=== PATIENT | female | born 1940 | race Hispanic/Latino ===

== ENCOUNTER 2017-07-29 14:12 | Inpatient (IN) | payer MEDICARE ==
[2017-07-29] MEDS ORDERED: Vancomycin 1gm in NS 250ml 1 GM/250 ML BAG IVPB STA (14:36)
[2017-07-29 14:59] LABS: BASO # 0.01 K/mm3 (0.0-2.0); BASO % 0.1 % (0.0-3.0); EOS # 0.2 (0.0-0.7); EOS % 1.9 % (1.5-5.0); GRAN # 5.09 (1.4-6.5); GRAN % 64.5 % (50.0-68.0); HEMATOCRIT 33.7 % (36.0-48.0); LYMPH # 1.9 (1.2-3.4); LYMPH % 23.4 % (22.0-35.0); MEAN CELL VOLUME 91.1 fl (80.0-105.0); MEAN CORPUSCULAR HEMOGLOBIN 28.4 pg (25.0-35.0); MEAN CORPUSCULAR HGB CONC 31.2 g/dl (31.0-37.0); MEAN PLATELET VOLUME 10.9 fl (7.0-11.0); MONO # 0.8 (0.1-0.6); MONO % 10.1 % (1.0-6.0); RED CELL DISTRIBUTION WIDTH 13.3 % (11.5-14.5); WHITE BLOOD COUNT 7.9 10^3/ul (4.5-11.0)
[2017-07-29 15:03] LABS: ALB/GLOB RATIO 1.1 (1.1-1.8); ALKALINE PHOSPHATASE 106 U/L (38-126); ALT/SGPT 20 U/L (7-56); AST/SGOT 23 U/L (14-36); BILIRUBIN,TOTAL 0.4 mg/dL (0.2-1.3); BLOOD UREA NITROGEN 29 mg/dL (7-21); CALCIUM 8.8 mg/dL (8.4-10.5); CARBON DIOXIDE 29 mmol/L (21-33); CHLORIDE 106 mmol/L (98-107); GFR AFRICAN-AMERICAN > 60; GLUCOSE,RANDOM 87 mg/dL (70-110); POTASSIUM 3.8 mmol/L (3.6-5.0); SODIUM 146 mmol/L (132-148); TOTAL PROTEIN 7.8 g/dL (5.8-8.3)
--- NOTE | 2017-07-29 15:30 | ED PDOC ---
Arrival/HPI - General Historian: Patient, Family - General Chief Complaint: Lower Extremity Problem/Injury Time Seen by Provider: 07/29/17 14:23 - History of Present Illness Narrative History of Present Illness (Text): 07/29/17 15:24 76yo female with Past medical history of hypertension, lymphedema, hyperlipdemia , previous cellulites who was referred to emergency department by Dr. Harley for admission. Patient reports increasing pain of her right LLE for the past few days. Saw Dr. Harley today and was referred to emergency department for admission. +Increasing discharge from right LE wound. She otherwise denies fever , chills, chest pain, SOB, abdominal pain, dizziness, nausea, vomiting, urinary symptoms, any other complaint. (Brandon Fallon A) Past Medical History - Provider Review Nursing Documentation Reviewed: Yes - Infectious Disease Hx of Infectious Diseases: None - Reproductive Menopause: Yes - Cardiac Hx Hypertension: Yes - Pulmonary Hx Respiratory Disorders: No - Neurological Hx Neurological Disorder: No - HEENT Hx HEENT Disorder: No - Renal Hx Renal Disorder: No - Endocrine/Metabolic Hx Endocrine Disorders: No - Hematological/Oncological Hx Cancer: Yes (colon in remission) Hx Chemotherapy: Yes - Integumentary Hx Dermatological Disorder: No Other/Comment: cellilitis/lymphadema ble redness +3 edema hard skin , multiple discolorations both arms, nonstageable posterior rle chronic ulcer 1cm x 0.5cm x 0.1cm - Musculoskeletal/Rheumatological Hx Falls: No - Gastrointestinal Hx Gastrointestinal Disorders: Yes (obese) Other/Comment: colon ca - Genitourinary/Gynecological Hx Genitourinary Disorders: No Hx Incontinence: Yes - Psychiatric Hx Psychophysiologic Disorder: No Hx Depression: No Hx Emotional Abuse: No Hx Physical Abuse: No Hx Substance Use: No - Surgical History Hx Cardiac Catheterization: Yes (02/15/16) Hx Cholecystectomy: Yes - Anesthesia Hx Anesthesia: No - Suicidal Assessment Feels Threatened In Home Enviroment: No Family/Social History - Physician Review Nursing Documentation Reviewed: Yes Family/Social History: Unknown Family HX Smoking Status: Never Smoked Hx Alcohol Use: No Hx Substance Use: No Hx Substance Use Treatment: No Allergies/Home Meds Allergies/Adverse Reactions: Allergies Penicillins Allergy (Verified 02/10/16 17:58) RASH Home Medications: Home Meds Medication Instructions Recorded Confirmed Calcium Carbonate [Caltrate] 1 tab PO DAILY 08/22/13 03/12/16 Metoprolol Tartrate 25 mg PO BID 08/22/13 03/12/16 Simvastatin 20 mg PO DAILY 02/10/16 03/12/16 Amlodipine Besylate [Norvasc] 2.5 mg PO DAILY 03/12/16 03/12/16 Review of Systems - Physician Review All systems were reviewed & negative as marked: Yes - Review of Systems Constitutional: Normal Eyes: Normal ENT: Normal Respiratory: Normal Cardiovascular: Normal Gastrointestinal: Normal Genitourinary Female: Normal Musculoskeletal: Normal Skin: Cellulitis (Right LE) Neurological: Normal Endocrine: Normal Hemo/Lymphatic: Normal Psychiatric: Normal Physical Exam Vital Signs Reviewed: Yes Temperature: Afebrile Blood Pressure: Normal Pulse: Regular Respiratory Rate: Normal Appearance: Positive for: Well-Appearing, Non-Toxic, Comfortable, Other ( Morbidly obese) Pain Distress: None Mental Status: Positive for: Alert and Oriented X 3 - Systems Exam Head: Present: Atraumatic, Normocephalic Pupils: Present: PERRL Extroacular Muscles: Present: EOMI Conjunctiva: Present: Normal Mouth: Present: Moist Mucous Membranes Neck: Present: Normal Range of Motion Respiratory/Chest: Present: Clear to Auscultation, Good Air Exchange. No: Respiratory Distress, Accessory Muscle Use Cardiovascular: Present: Regular Rate and Rhythm, Normal S1, S2. No: Murmurs Abdomen: Present: Normal Bowel Sounds, Rebound. No: Tenderness, Distention, Peritoneal Signs Back: Present: Normal Inspection Upper Extremity: Present: Normal Inspection. No: Cyanosis, Edema Lower Extremity: Present: Edema (5+), CALF TENDERNESS (Right LE), Normal ROM, Tenderness (Right thigh), Swelling, Erythema (Right LE). No: Temperature Abnormalties Neurological: Present: GCS=15, CN II-XII Intact, Speech Normal Skin: Present: Warm, Dry, Normal Color. No: Rashes Psychiatric: Present: Alert, Oriented x 3, Normal Insight, Normal Concentration Vital Signs Temp Pulse Resp BP Pulse Ox 07/29/17 15:48 98.0 F 71 18 125/71 96 07/29/17 14:24 97.8 F 76 18 129/72 98 Medical Decision Making ED Course and Treatment: 07/29/17 15:32 76yo female in emergency department for cellulitis PT with previous history of Cellulitis. She was afebrile and hemodynamically stable in emergency department. Will follow up labs, CXR/Femur xray and LE doppler. She is allergic to PCN, will start with Vancomycin. 07/29/17 16:06 No leukocytosis noted. Pending Urinalysis. Preliminary report from the [facility] was negative for DVT b/l CXR : NAD Femur xray - No subcaneous air. Case was DW Dr. Rollins. pt admitted under his service. ID and Pathology Specialist consult. (Brandon Fallon) - Lab Interpretations Lab Results: 07/29/17 14:40 07/29/17 14:40 Lab Results 07/29/17 14:40: Sodium 146, Potassium 3.8, Chloride 106, Carbon Dioxide 29, Anion Gap 15, BUN 29 H, Creatinine 0.8, Est GFR ( Amer) > 60, Est GFR ( Non-Af Amer) > 60, Random Glucose 87, Calcium 8.8, Total Bilirubin 0.4, AST 23, ALT 20, Alkaline Phosphatase 106, Total Protein 7.8, Albumin 4.1, Globulin 3.7, Albumin/Globulin Ratio 1.1 07/29/17 14:40: WBC 7.9, RBC 3.70, Hgb 10.5 L, Hct 33.7 L, MCV 91.1, MCH 28.4, MCHC 31.2, RDW 13.3, Plt Count 167, MPV 10.9, Gran % 64.5, Lymph % (Auto) 23.4, [place] % (Auto) 10.1 H, Eos % (Auto) 1.9, Baso % (Auto) 0.1, Gran # 5.09, Lymph # 1.9, [place] # 0.8 H, Eos # 0.2, Baso # 0.01 - RAD Interpretation Radiology Orders: 07/29/17 14:35 CHEST TWO VIEWS (PA/LAT) [RAD] Stat Femur Right [FEMUR 1 VIEW RT] [RAD] Stat 07/29/17 14:36 DUPLEX LOWER EXTRM VEIN BILAT [US] Stat - Medication Orders Current Medication Orders: Amlodipine Besylate (Norvasc) 2.5 mg PO DAILY [facility] Atorvastatin Calcium (Lipitor) 10 mg PO HS [facility] Metoprolol Tartrate (Lopressor) 25 mg PO BID [facility] Discontinued Medications Vancomycin HCl (Vancomycin 1gm) 1 gm in 250 mls @ 167 mls/hr IVPB STAT STA PRN Reason: Protocol Stop: 07/29/17 16:05 Last Admin: 07/29/17 16:04 Dose: 167 mls/hr eMAR Start Stop Document 07/29/17 16:04 IT (Rec: 07/29/17 16:07 IT [id number]) Intravenous Solution Start Date 07/29/17 Start Time 16:07 End Date 07/29/17 End time 18:10 Total Infusion Time 123 Disposition/Present on Arrival - Present on Arrival Any Indicators Present on Arrival: No History of DVT/PE: No History of Uncontrolled Diabetes: No Urinary Catheter: No History of Decub. Ulcer: No History Surgical Site Infection Following: None - Disposition Have Diagnosis and Disposition been Completed?: Yes Disposition Time: 16:00 - Disposition Diagnosis: Cellulitis, Urinary tract infection Disposition: HOSPITALIZED Patient Problems: Current Active Problems Problem Status Onset Cellulitis Acute Condition: FAIR
--- NOTE | 2017-07-29 16:32 | RAD ---
HISTORY: ADMISSION COMPARISON: 02/10/2016 TECHNIQUE: Chest PA and lateral FINDINGS: LUNGS: Low-normal lung volumes. No interval consolidation. PLEURA: No significant pleural effusion identified. Minimal small pleural effusion and/or minimal right inferolateral pleural thickening not excluded. Probably due to summation effects. Minimal biapical pleural thickening. No pneumothorax apparent. CARDIOVASCULAR: Mild cardiomegaly. The ectatic thoracic aorta is similar. Interval midline sternotomy changes. Probable minimal pulmonary venous congestion perhaps chronic. OSSEOUS STRUCTURES: Bilateral shoulder arthrosis of midline sternotomy. Old healed mid right lateral rib fracture VISUALIZED UPPER ABDOMEN: Normal. OTHER FINDINGS: None. IMPRESSION: Limited exam given large body habitus and summation effects. Nevertheless no consolidation or gross pleural effusions suggested. Similar mild cardiomegaly. Minimal pulmonary venous congestion - possibly chronic. Interval sternotomy changes
--- NOTE | 2017-07-29 16:34 | RAD ---
PROCEDURE: HISTORY: LEG PAIN COMPARISON: None TECHNIQUE: Single frontal views FINDINGS: No gross midshaft femoral fracture appreciated. Osteoarthrosis of the right hip suggested. Visualization of the proximal right femur is limited due to large body habitus IMPRESSION: No gross femoral fracture or lytic lesion. Right hip osteoarthrosis. Detailed right proximal femoral anatomy limited due to large body habitus
[2017-07-29 17:13] LABS: URINE BILIRUBIN NEGATIVE (NEGATIVE); URINE BLOOD NEGATIVE (NEGATIVE); URINE GLUCOSE (UA) NEGATIVE (NEGATIVE); URINE KETONE NEGATIVE (NEGATIVE); URINE LEUKOCYTE ESTERASE MODERATE Leu/uL (NEGATIVE); URINE PROTEIN NEGATIVE mg/dL (<30 mg/dL); URINE UROBILINOGEN 0.2 E.U./dL (<1 E.U./dL)
[2017-07-29 17:17] LABS: URINE APPEARANCE SL CLOUDY (CLEAR); URINE COLOR YELLOW (YELLOW)
[2017-07-29 17:25] LABS: URINE BACTERIA FEW (NEG); URINE RBC NEGATIVE /hpf (0-2); URINE WBC 15 - 20 /hpf (0-6)
--- NOTE | 2017-07-29 18:29 | US ---
HISTORY: Leg pain and swelling. Evaluate for DVT PHYSICIAN(S): Romie Daniels MD. TECHNIQUE: Duplex sonography and color-flow Doppler with graded compression were used to evaluate the deep venous systems of both lower extremities. The exam is very limited by body habitus and edema. The tibial veins are not well seen FINDINGS: The visualized deep venous systems of both lower extremities are sonographically normal and compressible. Normal wave forms and augmentation are seen. There is no sonographic evidence for deep venous thrombosis in the visualized segments of both lower extremities. IMPRESSION: No sonographic evidence for deep venous thrombosis in the visualized segments of both lower extremities. Very limited study.
[2017-07-29 23:03] VITALS: BMI 50.7
[2017-07-29] MEDS ORDERED: Pneumococcal 23-Valent Vaccine IM ONE (23:04)
[2017-07-29] MEDS ORDERED: Influenza Vaccine 60 mcg/0.5 mL SYR (4YR UP) IM ONE (23:04)
[2017-07-30] MEDS: Vancomycin 1gm in NS 250ml 1 GM/250 ML BAG IVPB SCH ×2 (04:24→15:39)
--- NOTE | 2017-07-30 13:00 | CP.PCM.CON ---
<Tato Eddy - Last Filed: 07/30/17 12:57> History of Present Illness - History of Present Illness History of Present Illness: Patient is a 76 year old female with past medical history of hypertension, lymphedema, hyperlipdemia, previous cellulites seen at bedside for superficial ulcerations of right foot, one anteriolateral, one posterolateral and cellulitic changes. Patient was admitted from Dr. Harley's clinic yesterday. She states that she is feeling better today but still has lots of pain at the ulceration sites. Patient denies any further pedal complaints at this time. Patient denies N/V/F/C/CP/SOB Review of Systems - Review of Systems Review of Systems: ROS unremarkable outside of HPI Past Patient History - Infectious Disease Hx of Infectious Diseases: None - Past Social History Smoking Status: Never Smoked - CARDIAC Hx Hypercholesterolemia: Yes Hx Hypertension: Yes Hx Peripheral Edema: Yes (lynphadema ble +4 pitting edema) Other/Comment: mitral valve replacement at [facility] - PULMONARY Hx Respiratory Disorders: No - NEUROLOGICAL Hx Neurological Disorder: No - HEENT Hx HEENT Problems: No - RENAL Hx Chronic Kidney Disease: No - ENDOCRINE/METABOLIC Hx Endocrine Disorders: No - HEMATOLOGICAL/ONCOLOGICAL Hx Cancer: Yes (colon in remission "yrs ago" as per pt) Hx Chemotherapy: Yes - INTEGUMENTARY Hx Dermatological Problems: No Other/Comment: cellulitis/lymphadema ble redness +3 edema hard skin , multiple discolorations both arms, nonstageable posterior rle chronic ulcer 1cm x 0.5cm x 0.1cm, foul smelling drainage from rle wound - MUSCULOSKELETAL/RHEUMATOLOGICAL Hx Back Pain: Yes Hx Falls: No Hx Unsteady Gait: Yes (cane) - GASTROINTESTINAL Hx Gastrointestinal Disorders: Yes (obese) Other/Comment: colon ca - GENITOURINARY/GYNECOLOGICAL Hx Genitourinary Disorders: No Hx Incontinence: Yes - PSYCHIATRIC Hx Psychophysiologic Disorder: No Hx Depression: No Hx Emotional Abuse: No Hx Physical Abuse: No - SURGICAL HISTORY Hx Surgeries: Yes (picc) Hx Cardiac Catheterization: Yes (02/15/16) Hx Cholecystectomy: Yes - ANESTHESIA Hx Anesthesia: No Meds Allergies/Adverse Reactions: Allergies Allergy/AdvReac Type Severity Reaction Status Date / Time Penicillins Allergy RASH Verified 02/10/16 17:58 - Medications Medications: Current Medications Amlodipine Besylate (Norvasc) 2.5 mg PO DAILY [facility] Last Admin: 07/30/17 09:40 Dose: 2.5 mg Atorvastatin Calcium (Lipitor) 10 mg PO HS [facility] Last Admin: 07/29/17 21:43 Dose: 10 mg Furosemide (Lasix) 20 mg PO DAILY [facility] Last Admin: 07/30/17 11:57 Dose: 20 mg Vancomycin HCl (Vancomycin 1gm) 1 gm in 250 mls @ 167 mls/hr IVPB Q12H [facility] PRN Reason: Protocol Last Admin: 07/30/17 04:24 Dose: 167 mls/hr Aztreonam (Azactam 1 Gm) 100 mls @ 100 mls/hr IVPB Q8 [facility] PRN Reason: Protocol Stop: 08/06/17 06:01 Metoprolol Tartrate (Lopressor) 25 mg PO BID [facility] Last Admin: 07/30/17 09:40 Dose: 25 mg Physical Exam - Constitutional Appears: Well, Non-toxic, No Acute Distress - Extremities Exam Additional comments: LE focused exam: Vasc: DP/PT pulses mildly palpable 1/4 b/l. Skin temperature warm to warm from proximal to distal b/l, increased on right side. CFT < 3 seconds to all digits b /l. Edematous changes noted to right leg Neuro: Epicritic and protective sensation grossly intact b/l Derm: Superficial ulcerations noted to anterolateral leg and posterolateral leg. Cellulitic changes noted to right LE. No malodor, no drainage, no purulence , no underlying fluctuance noted to either ulceration site. MSK: POP noted to ulceration sites of right leg - Neurological Exam Neurological exam: Alert, Oriented x3 - Psychiatric Exam Psychiatric exam: Normal Affect, Normal Mood Results - Vital Signs Recent Vital Signs: Last Vital Signs Temp 98.1 F 07/30/17 08:00 Pulse 68 07/30/17 08:00 Resp 20 07/30/17 08:00 BP 135/62 07/30/17 11:57 Pulse Ox 97 07/30/17 08:00 - Labs Result Diagrams: 07/29/17 14:40 07/29/17 14:40 Labs: Laboratory Results - last 24 hr 07/29/17 07/30/17 07/30/17 17:00 06:58 06:58 ESR 106 H C-React Prot High Sens > 15.00 H Urine Color Yellow Urine Appearance Sl cloudy Urine pH 7.0 Ur Specific [place] 1.010 Urine Protein Negative Urine Glucose (UA) Negative Urine Ketones Negative Urine Blood Negative Urine Nitrate Negative Urine Bilirubin Negative Urine Urobilinogen 0.2 Ur Leukocyte Esterase Moderate H Urine RBC Negative Urine WBC 15 - 20 Ur Epithelial Cells 4 - 5 Urine Bacteria Few Assessment & Plan - Assessment and Plan (Free Text) Assessment: 76 year old female seen at bedside for ulcerations and cellulitic changes of right leg Plan: Patient seen and evaluated at bedside with attending Dr. Harley Charts, labs and vitals evaluated Wound cx taken, results pending Wounds dressed with maxorb, gauze, ABD, kirlix, RUBÉN wrapping to leg Continue IV abx per ID ESR 106 Extremity ultrasound 07/29: No DVT Tib/Fib xray ordered to rule out OM and underlying abscess, MRI will be ordered if necessary Continue PT/OT Podiatry will continue to follow while patient is in house - Date & Time Date: 07/30/17 Time: 13:09 <Giancarlo Harley - Last Filed: 07/31/17 10:40> Meds - Medications Medications: Current Medications Amlodipine Besylate (Norvasc) 2.5 mg PO DAILY [facility] Last Admin: 07/31/17 09:47 Dose: 2.5 mg Atorvastatin Calcium (Lipitor) 10 mg PO HS [facility] Last Admin: 07/30/17 21:58 Dose: 10 mg Furosemide (Lasix) 40 mg PO BID [facility] Last Admin: 07/31/17 09:47 Dose: 40 mg Vancomycin HCl (Vancomycin 1gm) 1 gm in 250 mls @ 167 mls/hr IVPB Q12H [facility] PRN Reason: Protocol Last Admin: 07/31/17 04:18 Dose: 167 mls/hr Aztreonam (Azactam 1 Gm) 100 mls @ 100 mls/hr IVPB Q8 MYLES PRN Reason: Protocol Stop: 08/06/17 06:01 Last Admin: 07/31/17 05:59 Dose: 100 mls/hr Metoprolol Tartrate (Lopressor) 25 mg PO BID [facility] Last Admin: 07/31/17 09:38 Dose: 25 mg Oxycodone/Acetaminophen (Percocet 5/325 Mg Tab) 1 tab PO Q4H PRN PRN Reason: Pain, severe (8-10) Stop: 08/02/17 15:28 Last Admin: 07/30/17 15:39 Dose: 1 tab Results - Vital Signs Recent Vital Signs: Last Vital Signs Temp 97.4 F L 07/31/17 08:10 Pulse 73 07/31/17 09:38 Resp 18 07/31/17 08:10 BP 114/63 07/31/17 09:47 Pulse Ox 95 07/31/17 08:10 - Labs Result Diagrams: 07/29/17 14:40 07/31/17 06:52 Labs: Laboratory Results - last 24 hr 07/30/17 07/31/17 06:58 06:52 Sodium 144 Potassium 4.1 Chloride 109 H Carbon Dioxide 31 Anion Gap 8 L BUN 19 Creatinine 0.9 Est GFR ( Amer) > 60 Est GFR (Non-Af Amer) > 60 Random Glucose 86 Calcium 8.5 C-React Prot High Sens > 15.00 H Attending/Attestation - Attestation I have personally seen and examined this patient.: Yes I have fully participated in the care of the patient.: Yes I have reviewed all pertinent clinical information: Yes
--- NOTE | 2017-07-30 13:25 | CP.PCM.CON ---
History of Present Illness - History of Present Illness History of Present Illness: 76 year old female with PMH of HTN, chronic lymphedema, dyslipidemia, history of cellulitis, morbid obesity with BMI 51, S/P mitral valve replacement, history of colon cancer was sent in by Dr. Harley because of worsening right lower extremity swelling and pain for the past 3-4 days. She is also having discharge from wounds on her right leg specifically. She was seen by Dr. Harley and sent in for admission. She denies animal contacts, no soaking her feet or legs in water, no walking barefoot on soil. She denies fever or chills, no nausea or vomiting, no chest pain, no SOB, no headache or dizziness, no diarrhea , no dysuria. Infectious Diseases consult is requested to further evaluate and manage. Review of Systems - Review of Systems All systems: reviewed and no additional remarkable complaints except (as per HPI ) Past Patient History - Infectious Disease Hx of Infectious Diseases: None - Past Social History Smoking Status: Never Smoked - CARDIAC Hx Hypercholesterolemia: Yes Hx Hypertension: Yes Hx Peripheral Edema: Yes (lynphadema ble +4 pitting edema) Other/Comment: mitral valve replacement at [facility] - PULMONARY Hx Respiratory Disorders: No - NEUROLOGICAL Hx Neurological Disorder: No - HEENT Hx HEENT Problems: No - RENAL Hx Chronic Kidney Disease: No - ENDOCRINE/METABOLIC Hx Endocrine Disorders: No - HEMATOLOGICAL/ONCOLOGICAL Hx Cancer: Yes (colon in remission "yrs ago" as per pt) Hx Chemotherapy: Yes - INTEGUMENTARY Hx Dermatological Problems: No Other/Comment: cellulitis/lymphadema ble redness +3 edema hard skin , multiple discolorations both arms, nonstageable posterior rle chronic ulcer 1cm x 0.5cm x 0.1cm, foul smelling drainage from rle wound - MUSCULOSKELETAL/RHEUMATOLOGICAL Hx Back Pain: Yes Hx Falls: No Hx Unsteady Gait: Yes (cane) - GASTROINTESTINAL Hx Gastrointestinal Disorders: Yes (obese) Other/Comment: colon ca - GENITOURINARY/GYNECOLOGICAL Hx Genitourinary Disorders: No Hx Incontinence: Yes - PSYCHIATRIC Hx Psychophysiologic Disorder: No Hx Depression: No Hx Emotional Abuse: No Hx Physical Abuse: No - SURGICAL HISTORY Hx Surgeries: Yes (picc) Hx Cardiac Catheterization: Yes (02/15/16) Hx Cholecystectomy: Yes - ANESTHESIA Hx Anesthesia: No Meds Allergies/Adverse Reactions: Allergies Allergy/AdvReac Type Severity Reaction Status Date / Time Penicillins Allergy RASH Verified 02/10/16 17:58 - Medications Medications: Current Medications Amlodipine Besylate (Norvasc) 2.5 mg PO DAILY [facility] Atorvastatin Calcium (Lipitor) 10 mg PO HS [facility] Last Admin: 07/29/17 21:43 Dose: 10 mg Metoprolol Tartrate (Lopressor) 25 mg PO BID [facility] Last Admin: 07/29/17 18:30 Dose: 25 mg Physical Exam - Constitutional Appears: Non-toxic, No Acute Distress - Head Exam Head Exam: NORMAL INSPECTION - ENT Exam ENT Exam: Mucous Membranes Moist - Neck Exam Neck exam: Negative for: Lymphadenopathy, Meningismus - Respiratory Exam Respiratory Exam: Decreased Breath Sounds - Cardiovascular Exam Cardiovascular Exam: +S1, +S2 - GI/Abdominal Exam GI & Abdominal Exam: Soft. absent: Tenderness - Extremities Exam Additional comments: both legs with dressings in place Results - Vital Signs Recent Vital Signs: Last Vital Signs Temp 98.3 F 07/29/17 22:43 Pulse 83 07/29/17 22:43 Resp 20 07/29/17 22:43 BP 147/53 L 07/29/17 22:43 Pulse Ox 97 07/29/17 19:09 - Labs Result Diagrams: 07/29/17 14:40 07/29/17 14:40 Labs: Laboratory Results - last 24 hr 07/29/17 17:00 Urine Color Yellow Urine Appearance Sl cloudy Urine pH 7.0 Ur Specific [place] 1.010 Urine Protein Negative Urine Glucose (UA) Negative Urine Ketones Negative Urine Blood Negative Urine Nitrate Negative Urine Bilirubin Negative Urine Urobilinogen 0.2 Ur Leukocyte Esterase Moderate H Urine RBC Negative Urine WBC 15 - 20 Ur Epithelial Cells 4 - 5 Urine Bacteria Few Assessment & Plan - Assessment and Plan (Free Text) Plan: Assessment probable right lower extremity infected wounds, cellulitis in a patient with chronic lymphedema HTN chronic lymphedema dyslipidemia history of cellulitis morbid obesity with BMI 51 S/P mitral valve replacement history of colon cancer Plan Started patient on Vancomycin and Azactam pending blood and wound cx; follow up Podiatry evaluation and recommendations will monitor clinically
[2017-07-30] MEDS: Aztreonam 1 Gm in NS 100mL 100 ML IVPB SCH ×2 (13:44→21:58)
[2017-07-30] MEDS: Oxycodone/Acetaminophen 5/325 mg Tab PO PRN (15:39)
--- NOTE | 2017-07-30 19:40 | HP ---
CHIEF COMPLAINT AND HISTORY OF PRESENT ILLNESS: This is a 76-year-old female who is coming in with a past medical history of hypertension, lymphedema, and dyslipidemia. She was referred by Dr. Harley because of lower leg cellulitis. She was sent to the ER from his office for further management. The patient says that she has been having discharge coming from the open wound in the left lower leg. She denies any fever or chills. No headaches, no dizziness, no nausea, no vomiting, no dysuria or frequency. PAST MEDICAL HISTORY: Colon cancer. PAST SURGICAL HISTORY: Cholecystectomy. REVIEW OF SYSTEMS: All other review of symptoms are within normal limits except as mentioned. ALLERGIES: PENICILLIN ALLERGY. HOME MEDICATIONS: Caltrate, metoprolol, simvastatin, and amlodipine. SOCIAL HISTORY: She does not smoke or use drugs. FAMILY HISTORY: Noncontributory. PHYSICAL EXAMINATION: VITAL SIGNS: Temperature is 98.1, pulse is 68, blood pressure is 112/56, respiration is 20, O2 saturation is 97%. Height is 4 feet 10 inches and weight is 242 pounds, BMI is 50.7. GENERAL: The patient lying in bed, uncomfortable, and in no acute distress. HEENT: Atraumatic and normocephalic. Anicteric sclerae. Moist mucosa. [place] conjunctivae. No oral lesions. NECK: No JVD, anterior and posterior adenopathy, thyromegaly, or bruits. CARDIOVASCULAR: S1 and S2 regular. No murmur, rubs, or gallop. LUNGS: Clear to auscultation bilaterally. No wheezes, rales, or rhonchi. ABDOMEN: Bowel sounds are positive. Soft, nontender and nondistended. No hepatosplenomegaly. No rebound and no guarding EXTREMITIES: No cyanosis, clubbing, or edema. NEUROLOGIC: No facial asymmetry. Tongue is midline. No uvula deviation. Power is 5/5 upper extremity and lower extremity. Sensation intact in upper extremity and lower extremity. PSYCHIATRIC: She is awake, alert and oriented x3. No anxiety or depression. She has normal affect. GENITOURINARY: No CVA tenderness. VASCULAR: 2+ pulses in the carotid pulses and pedal pulses. SKIN: No erythema or nodules SPINE: Shows normal curvature. EXTREMITIES: No cyanosis and clubbing. Left leg, there is a 2+ edema. There is an ulcer that is about 1 cm. LABORATORY DATA: Labs reviewed. The patient has white count of 7.9, hemoglobin is 10.5. Chemistry shows a creatinine of 0.8. Chest x-ray done shows limited exam as no consolidation has been seen. Femur x-ray, no lytic lesion or femoral fracture, has right hip osteoarthritis. Lower extremity Dopplers of the vein shows no evidence of DVT. ASSESSMENT: 1. Left 1 cm ulcer. 2. Dyslipidemia. 3. Hypertension. 4. Lower extremity edema. 5. Chronic back pain. PLAN: The patient is admitted to the hospital. She is on aztreonam for antibiotics. She is on Lipitor for dyslipidemia. She is on Norvasc for hypertension. She is receiving vancomycin as well for antibiotics. She is on regular diet. I have asked Podiatry and ID to evaluate the patient, and I will await for the input from them. I will also place the patient on a regular diet. Amaury Rollins MD
[2017-07-31] MEDS: Vancomycin 1gm in NS 250ml 1 GM/250 ML BAG IVPB SCH ×2 (04:18→16:55)
[2017-07-31] MEDS: Aztreonam 1 Gm in NS 100mL 100 ML IVPB SCH ×3 (05:59→22:10)
[2017-07-31 07:11] LABS: BLOOD UREA NITROGEN 19 mg/dL (7-21); CALCIUM 8.5 mg/dL (8.4-10.5); CARBON DIOXIDE 31 mmol/L (21-33); CHLORIDE 109 mmol/L (98-107); GFR AFRICAN-AMERICAN > 60; GLUCOSE,RANDOM 86 mg/dL (70-110); POTASSIUM 4.1 mmol/L (3.6-5.0); SODIUM 144 mmol/L (132-148)
--- NOTE | 2017-07-31 08:13 | PN ---
DATE: 07/31/2017 SUBJECTIVE: The patient has no complaints of any chest pain or shortness of breath. No headaches. PHYSICAL EXAMINATION: VITAL SIGNS: Temperature is 98.8, pulse is 72, blood pressure is 140/72, and respirations are 18. GENERAL: The patient is lying in bed, flat, comfortable. HEENT: No oral lesion. Anicteric sclerae. Moist mucosa. NECK: No JVD, adenopathy, or thyromegaly. CARDIOVASCULAR: S1 and S2, regular. No murmurs, rubs, or gallops. LUNGS: Clear to auscultation bilaterally. No wheeze, rales, or rhonchi. ABDOMEN: Bowel sounds are positive, soft, nontender and nondistended. EXTREMITIES: Right lower extremity 2+ edema and 1 cm ulcer in the left lower leg. LABORATORY DATA: White count is 7.9, hemoglobin is 10.5, and creatinine is 0.8. ASSESSMENT: 1. Left lower leg 1 cm ulcer. 2. Dyslipidemia. 3. Hypertension. 4. Lower extremity edema. 5. Chronic back pain. PLAN: The patient is on antibiotics. Blood cultures are negative. She is on Lasix daily. I will increase the patient's Lasix to try to help with diuresis of the lower extremity edema. The patient is on amlodipine for hypertension. She will continue on vancomycin for IV antibiotics, on a regular diet. She will be followed by Podiatry and Infectious Diseases, I appreciate their input. Her lower extremity Doppler showed no DVT. ESR is elevated. Amaury Rollins MD
--- NOTE | 2017-07-31 11:34 | CP.PCM.PN ---
<Tato Eddy - Last Filed: 07/31/17 11:31> Subjective - Date & Time of Evaluation Date of Evaluation: 07/31/17 Time of Evaluation: 11:31 - Subjective Subjective: Patient is a 76 year old female with past medical history of hypertension, lymphedema, hyperlipdemia, previous cellulites seen at bedside for superficial ulcerations of right leg and cellulitic changes. She states that she is feeling better today but still has lots of pain at the ulceration sites and increased pain in her legs. Patient denies any further pedal complaints at this time. Patient denies N/V/F/C/CP/SOB Objective - Vital Signs/Intake and Output Vital Signs (last 24 hours): Temp Pulse Resp BP Pulse Ox 97.4 F L 73 18 114/63 95 07/31/17 08:10 07/31/17 09:38 07/31/17 08:10 07/31/17 09:47 07/31/17 08:10 Intake and Output: 07/31/17 07/31/17 06:59 18:59 Intake Total 180 Balance 180 - Medications Medications: Current Medications Amlodipine Besylate (Norvasc) 2.5 mg PO DAILY [facility] Last Admin: 07/31/17 09:47 Dose: 2.5 mg Atorvastatin Calcium (Lipitor) 10 mg PO HS [facility] Last Admin: 07/30/17 21:58 Dose: 10 mg Furosemide (Lasix) 40 mg PO BID [facility] Last Admin: 07/31/17 09:47 Dose: 40 mg Vancomycin HCl (Vancomycin 1gm) 1 gm in 250 mls @ 167 mls/hr IVPB Q12H MYLES PRN Reason: Protocol Last Admin: 07/31/17 04:18 Dose: 167 mls/hr Aztreonam (Azactam 1 Gm) 100 mls @ 100 mls/hr IVPB Q8 MYLES PRN Reason: Protocol Stop: 08/06/17 06:01 Last Admin: 07/31/17 05:59 Dose: 100 mls/hr Metoprolol Tartrate (Lopressor) 25 mg PO BID [facility] Last Admin: 07/31/17 09:38 Dose: 25 mg Oxycodone/Acetaminophen (Percocet 5/325 Mg Tab) 1 tab PO Q4H PRN PRN Reason: Pain, severe (8-10) Stop: 08/02/17 15:28 Last Admin: 07/30/17 15:39 Dose: 1 tab - Labs Labs: 07/31/17 06:52 - Constitutional Appears: Well, Non-toxic, No Acute Distress - Extremities Exam Additional comments: LE focused exam: Vasc: DP/PT pulses mildly palpable 1/4 b/l. Skin temperature warm to warm from proximal to distal b/l, increased on right side but decreased from yesterday. CFT < 3 seconds to all digits b/l. Edematous changes noted to right leg, improved from yesterday Neuro: Epicritic and protective sensation grossly intact b/l Derm: Superficial ulcerations noted to anterolateral leg and posterolateral leg. Cellulitic changes noted to right LE, improved from yesterday. No malodor, no drainage, no purulence, no underlying fluctuance noted to either ulceration site. MSK: POP noted to ulceration sites of right leg - Neurological Exam Neurological Exam: Alert, Awake, Oriented x3 - Psychiatric Exam Psychiatric exam: Normal Affect, Normal Mood Assessment and Plan - Assessment and Plan (Free Text) Assessment: 76 year old female seen at bedside for ulcerations and cellulitic changes of right leg Plan: Patient seen and evaluated at bedside with attending Dr. Harley Charts, labs and vitals evaluated Wounds dressed with maxorb, gauze, ABD, kirlix, RUBÉN wrapping to leg Continue IV abx per ID ESR 106 Extremity ultrasound 07/29: No DVT Wound cx taken, results pending Tib/Fib xray ordered to rule out OM and underlying abscess; awaiting final read MRI will be ordered if necessary following xray results Continue PT/OT Podiatry will continue to follow while patient is in house <Giancarlo Harley - Last Filed: 07/31/17 14:51> Objective - Vital Signs/Intake and Output Vital Signs (last 24 hours): Temp Pulse Resp BP Pulse Ox 97.4 F L 73 18 114/63 95 07/31/17 08:10 07/31/17 09:38 07/31/17 08:10 07/31/17 09:47 07/31/17 08:10 Intake and Output: 07/31/17 07/31/17 06:59 18:59 Intake Total 180 480 Balance 180 480 - Medications Medications: Current Medications Amlodipine Besylate (Norvasc) 2.5 mg PO DAILY [facility] Last Admin: 07/31/17 09:47 Dose: 2.5 mg Atorvastatin Calcium (Lipitor) 10 mg PO HS [facility] Last Admin: 07/30/17 21:58 Dose: 10 mg Furosemide (Lasix) 40 mg PO BID [facility] Last Admin: 07/31/17 09:47 Dose: 40 mg Vancomycin HCl (Vancomycin 1gm) 1 gm in 250 mls @ 167 mls/hr IVPB Q12H MYLES PRN Reason: Protocol Last Admin: 07/31/17 04:18 Dose: 167 mls/hr Aztreonam (Azactam 1 Gm) 100 mls @ 100 mls/hr IVPB Q8 MYLES PRN Reason: Protocol Stop: 08/06/17 06:01 Last Admin: 07/31/17 14:47 Dose: 100 mls/hr Metoprolol Tartrate (Lopressor) 25 mg PO BID [facility] Last Admin: 07/31/17 09:38 Dose: 25 mg Oxycodone/Acetaminophen (Percocet 5/325 Mg Tab) 1 tab PO Q4H PRN PRN Reason: Pain, severe (8-10) Stop: 08/02/17 15:28 Last Admin: 07/31/17 12:27 Dose: 1 tab - Labs Labs: 07/31/17 06:52 Attending/Attestation - Attestation I have personally seen and examined this patient.: Yes I have fully participated in the care of the patient.: Yes I have reviewed all pertinent clinical information, including history, physical exam and plan: Yes
[2017-07-31] MEDS: Oxycodone/Acetaminophen 5/325 mg Tab PO PRN (12:27)
--- NOTE | 2017-07-31 12:55 | CP.PCM.PN ---
Subjective - Date & Time of Evaluation Date of Evaluation: 07/31/17 Time of Evaluation: 11:20 - Subjective Subjective: Still with pain in both legs, no fevers overnight. Objective - Vital Signs/Intake and Output Vital Signs (last 24 hours): Temp Pulse Resp BP Pulse Ox 97.4 F L 73 18 114/63 95 07/31/17 08:10 07/31/17 09:38 07/31/17 08:10 07/31/17 09:47 07/31/17 08:10 Intake and Output: 07/31/17 07/31/17 06:59 18:59 Intake Total 180 Balance 180 - Medications Medications: Current Medications Amlodipine Besylate (Norvasc) 2.5 mg PO DAILY [facility] Last Admin: 07/31/17 09:47 Dose: 2.5 mg Atorvastatin Calcium (Lipitor) 10 mg PO HS [facility] Last Admin: 07/30/17 21:58 Dose: 10 mg Furosemide (Lasix) 40 mg PO BID [facility] Last Admin: 07/31/17 09:47 Dose: 40 mg Vancomycin HCl (Vancomycin 1gm) 1 gm in 250 mls @ 167 mls/hr IVPB Q12H MYLES PRN Reason: Protocol Last Admin: 07/31/17 04:18 Dose: 167 mls/hr Aztreonam (Azactam 1 Gm) 100 mls @ 100 mls/hr IVPB Q8 MYLES PRN Reason: Protocol Stop: 08/06/17 06:01 Last Admin: 07/31/17 05:59 Dose: 100 mls/hr Metoprolol Tartrate (Lopressor) 25 mg PO BID [facility] Last Admin: 07/31/17 09:38 Dose: 25 mg Oxycodone/Acetaminophen (Percocet 5/325 Mg Tab) 1 tab PO Q4H PRN PRN Reason: Pain, severe (8-10) Stop: 08/02/17 15:28 Last Admin: 07/30/17 15:39 Dose: 1 tab - Labs Labs: 07/31/17 06:52 - Constitutional Appears: Non-toxic - Head Exam Head Exam: NORMAL INSPECTION - ENT Exam ENT Exam: Mucous Membranes Moist - Neck Exam Neck Exam: absent: Meningismus - Respiratory Exam Respiratory Exam: Decreased Breath Sounds - Cardiovascular Exam Cardiovascular Exam: +S1, +S2 - GI/Abdominal Exam GI & Abdominal Exam: Soft. absent: Tenderness - Extremities Exam Additional comments: both legs with dressings in place Assessment and Plan - Assessment and Plan (Free Text) Plan: Assessment probable right lower extremity infected wounds, cellulitis in a patient with chronic lymphedema HTN chronic lymphedema dyslipidemia history of cellulitis morbid obesity with BMI 51 S/P mitral valve replacement history of colon cancer Plan continue Vancomycin and Azactam day 2; follow up blood and wound cx; discussed with Dr. Harley and we will await MRI of the leg results will continue to monitor clinically
--- NOTE | 2017-07-31 13:11 | RAD ---
PROCEDURE: Radiographs of the right tibia and fibula. HISTORY: ulcerations and cellulitic changes, R leg r/o OM COMPARISON: None available. TECHNIQUE: Frontal and lateral views obtained. FINDINGS: BONES: No fracture or destructive lesion. JOINT SPACES: Unremarkable. OTHER FINDINGS: None. IMPRESSION: Unremarkable radiographs of the right tibia and fibula.
[2017-07-31 17:44] VITALS: O2SAT 94
[2017-08-01] MEDS: Aztreonam 1 Gm in NS 100mL 100 ML IVPB SCH ×2 (01:42→14:08)
[2017-08-01] MEDS: Vancomycin 1gm in NS 250ml 1 GM/250 ML BAG IVPB SCH ×2 (05:36→15:19)
[2017-08-01 07:54] VITALS: PULSE 68; RESP 20; TEMP 98.5
--- NOTE | 2017-08-01 08:51 | CP.PCM.PN ---
<Charlie Carlisle - Last Filed: 08/01/17 09:41> Subjective - Date & Time of Evaluation Date of Evaluation: 08/01/17 Time of Evaluation: 08:50 - Subjective Subjective: Progress Note for Dr. Harley Patient is a 76 year old female with past medical history of hypertension, lymphedema, hyperlipdemia, previous cellulites seen at bedside for superficia ulcerations of right leg and cellulitic changes. Patient is seen resting comfortably in bed, AAOx3 and in NAD. Patient reports pain to her lower extremity. Patient denies any further pedal complaints at this time. Patient denies N/V/F/C/CP/SOB Objective - Vital Signs/Intake and Output Vital Signs (last 24 hours): Temp Pulse Resp BP Pulse Ox 98.5 F 68 20 117/47 L 94 L 08/01/17 07:30 08/01/17 07:30 08/01/17 07:30 08/01/17 07:30 08/01/17 07:30 Intake and Output: 08/01/17 08/01/17 06:59 18:59 Intake Total 180 Output Total 900 Balance -720 - Medications Medications: Current Medications Amlodipine Besylate (Norvasc) 2.5 mg PO DAILY [facility] Last Admin: 07/31/17 09:47 Dose: 2.5 mg Atorvastatin Calcium (Lipitor) 10 mg PO HS [facility] Last Admin: 07/31/17 22:11 Dose: 10 mg Furosemide (Lasix) 40 mg PO BID [facility] Last Admin: 07/31/17 17:56 Dose: 40 mg Vancomycin HCl (Vancomycin 1gm) 1 gm in 250 mls @ 167 mls/hr IVPB Q12H MYLES PRN Reason: Protocol Last Admin: 08/01/17 05:36 Dose: 167 mls/hr Aztreonam (Azactam 1 Gm) 100 mls @ 100 mls/hr IVPB Q8 MYLES PRN Reason: Protocol Stop: 08/06/17 06:01 Last Admin: 08/01/17 01:42 Dose: 100 mls/hr Metoprolol Tartrate (Lopressor) 25 mg PO BID [facility] Last Admin: 07/31/17 17:56 Dose: 25 mg Oxycodone/Acetaminophen (Percocet 5/325 Mg Tab) 1 tab PO Q4H PRN PRN Reason: Pain, severe (8-10) Stop: 08/02/17 15:28 Last Admin: 07/31/17 12:27 Dose: 1 tab - Labs Labs: 07/31/17 06:52 - Constitutional Appears: Well, Non-toxic, No Acute Distress - Extremities Exam Additional comments: LE focused exam: Vasc: DP/PT pulses mildly palpable 1/4 b/l. Skin temperature warm to warm from proximal to distal b/l, increased on right side but decreased from yesterday. CFT < 3 seconds to all digits b/l. Edematous changes noted to right leg, improved from yesterday Neuro: Epicritic and protective sensation grossly intact b/l Derm: Superficial ulcerations noted to anterolateral leg and posterolateral leg. Cellulitic changes noted to right LE, improved from yesterday. No malodor, no drainage, no purulence, no underlying fluctuance noted to either ulceration site. MSK: POP noted to ulceration sites of right leg - Neurological Exam Neurological Exam: Alert, Awake, Oriented x3 - Psychiatric Exam Psychiatric exam: Normal Affect, Normal Mood Assessment and Plan - Assessment and Plan (Free Text) Assessment: 76 year old female seen at bedside for ulcerations and cellulitic changes of right leg Plan: Patient seen and evaluated at bedside with attending Dr. Harley Charts, labs and vitals evaluated Wounds dressed with maxorb, gauze, ABD, kirlix, RUBÉN wrapping to leg Continue IV abx per ID ESR 106 Extremity ultrasound 07/29: No DVT Wound culture taken again today on 08/01/17 and given to nurse Tib/Fib xray results- unremarkable Ordered MRI to r/o abscess and pathology Continue PT/OT Podiatry will continue to follow while patient is in house <Giancarlo Harley - Last Filed: 08/01/17 10:01> Objective - Vital Signs/Intake and Output Vital Signs (last 24 hours): Temp Pulse Resp BP Pulse Ox 98.5 F 68 20 122/60 94 L 08/01/17 07:30 08/01/17 07:30 08/01/17 07:30 08/01/17 09:25 08/01/17 07:30 Intake and Output: 08/01/17 08/01/17 06:59 18:59 Intake Total 180 Output Total 900 Balance -720 - Medications Medications: Current Medications Amlodipine Besylate (Norvasc) 2.5 mg PO DAILY [facility] Last Admin: 07/31/17 09:47 Dose: 2.5 mg Atorvastatin Calcium (Lipitor) 10 mg PO HS [facility] Last Admin: 07/31/17 22:11 Dose: 10 mg Furosemide (Lasix) 40 mg PO BID [facility] Last Admin: 08/01/17 09:25 Dose: 40 mg Vancomycin HCl (Vancomycin 1gm) 1 gm in 250 mls @ 167 mls/hr IVPB Q12H MYLES PRN Reason: Protocol Last Admin: 08/01/17 05:36 Dose: 167 mls/hr Aztreonam (Azactam 1 Gm) 100 mls @ 100 mls/hr IVPB Q8 MYLES PRN Reason: Protocol Stop: 08/06/17 06:01 Last Admin: 08/01/17 01:42 Dose: 100 mls/hr Metoprolol Tartrate (Lopressor) 25 mg PO BID [facility] Last Admin: 08/01/17 09:25 Dose: 25 mg Oxycodone/Acetaminophen (Percocet 5/325 Mg Tab) 1 tab PO Q4H PRN PRN Reason: Pain, severe (8-10) Stop: 08/02/17 15:28 Last Admin: 08/01/17 09:25 Dose: 1 tab - Labs Labs: 07/31/17 06:52 Attending/Attestation - Attestation I have personally seen and examined this patient.: Yes I have fully participated in the care of the patient.: Yes I have reviewed all pertinent clinical information, including history, physical exam and plan: Yes
[2017-08-01] MEDS: Oxycodone/Acetaminophen 5/325 mg Tab PO PRN (09:25)
[2017-08-01 14:10] VITALS: BP 112/60
--- NOTE | 2017-08-02 01:04 | PN ---
SUBJECTIVE: The patient was seen early this morning in room 569, bed 1. No fevers, no chills. She did well. PHYSICAL EXAMINATION VITAL SIGNS: Temperature is 98, blood pressure is 120/60, respiratory rate of 20, heart rate of 68. HEENT: Unremarkable. NECK: Supple. LUNGS: Decreased breath sounds. HEART: Normal S1 and S2. ABDOMEN: Soft. LABORATORY DATA: Laboratory examination reveals a white count of 7.9, hemoglobin of 10, platelets are 167. Chemistry reveals a BUN of 19, creatinine of 0.9. C-reactive protein screen is 16. Microbiology reveals the urine culture is strep viridans. The blood cultures are negative. The leg culture is pending and make sure results are reviewed from yesterday, Dr. Marin's report is reviewed. X-rays are unremarkable, Dr. Harley's report from this morning. ASSESSMENT AND PLAN: This is a 76-year-old female seen early this morning, #[id number], bed #1 with probable right lower extremity infected wound cellulitis, hypertension, chronic lymphedema and dyslipidemia, history of cellulitis and day #3 and I will check on the MRI results which is ordered and pending and the patient is on antibiotics as stated. Richmond Rod MD
--- NOTE | 2017-08-03 09:30 | DS ---
DISCHARGE DIAGNOSES: 1. Right leg cellulitis. 2. Chronic back pain. 3. Hypertension. 4. Anemia. HOSPITAL COURSE: The patient was admitted with right leg cellulitis, she was treated with IV antibiotics. As per ID, ID consultation was requested. Podiatry was consulted. She also had ulcer on the right leg. Wound dressing done regularly by Podiatry. She is being transferred to transitional care unit to continue IV antibiotic and gait improvement. PHYSICAL EXAMINATION: On discharge: GENERAL: Comfortable in bed in no acute distress. VITAL SIGNS: Temperature 98.8, heart rate is 80 per minute, blood pressure 145/60, respiratory rate 18 per minute. HEENT: Normal. NECK: No lymphadenopathy. CHEST: Air entry present and equal bilaterally. No added sounds. CARDIOVASCULAR: S1 and S2 normal. No murmur. No gallop. ABDOMEN: Soft and nontender. No hepatosplenomegaly. EXTREMITIES: Right leg in dressing. Right bilateral leg edema. CENTRAL NERVOUS SYSTEM Alert and oriented x3. No focal sensory or motor deficit. CONDITION ON DISCHARGE: Stable. DISPOSITION: Discharge to transitional care unit. DISCHARGE MEDICATIONS: Amlodipine 2.5 mg daily, Lipitor 20 mg daily, aztreonam 1 g q. 8 hours, Lasix 40 mg b.i.d., metoprolol 25 mg p.o. b.i.d., Percocet p.r.n. for pain, and vancomycin 1 g daily q. 12 hours. DIET: Regular diet. Time spent in preparing discharge and coordinating care 55 minutes. Kenya Bartholomew MD
== END 2017-08-01 16:24 | DRG 603 ==
LOC: ED 14:12 → ERH 16:18 → 5RNO 19:18
PROVIDERS: ADMIT Internal Medicine Nephrology; ATTEND Internal Medicine Nephrology
DX: L03.115 Cellulitis of right lower limb (principal); L97.919 Non-pressure chronic ulcer of unspecified part of right lower leg with unspecified severity; N39.0 Urinary tract infection, site not specified; Z68.43 Body mass index [BMI] 50.0-59.9, adult; D64.9 Anemia, unspecified; I10 Essential (primary) hypertension; E66.01 Morbid (severe) obesity due to excess calories; Z95.2 Presence of prosthetic heart valve; Z90.49 Acquired absence of other specified parts of digestive tract; Z85.038 Personal history of other malignant neoplasm of large intestine; Z79.899 Other long term (current) drug therapy; I89.0 Lymphedema, not elsewhere classified; E78.5 Hyperlipidemia, unspecified; E78.00 Pure hypercholesterolemia, unspecified; G89.29 Other chronic pain; Z88.0 Allergy status to penicillin; R26.81 Unsteadiness on feet; R32 Unspecified urinary incontinence